=== PATIENT | male | born 1930 | race Caucasian/White ===

== ENCOUNTER 2017-10-31 10:42 | Emergency (ER) | payer MEDICARE, BC, OTHER ==
--- NOTE | 2017-10-31 10:44 | ER Document Report ---
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 They did not want to drive down for the suture removal so they came to [place] since they live nearby. It is a running stitch on the right cheek. Associated Symptoms: None Exacerbated by: Denies Relieved by: Denies - ROS ROS below otherwise negative: Yes Systems Reviewed and Negative: Yes All other systems reviewed and negative Past Medical History - General Information source: Patient - Social History Smoking Status: Unknown if Ever Smoked Frequency of alcohol use: None Drug Abuse: None Lives with: Family Family History: None - Past Medical History Cardiac Medical History: Reports: Hx Hypertension Past Surgical History: Reports: Other - derm - Immunizations Hx Diphtheria, Pertussis, Tetanus Vaccination: No Vertical Provider Document - CONSTITUTIONAL Agree With Documented VS: Yes - INFECTION CONTROL TRAVEL OUTSIDE OF THE [place] IN LAST 30 DAYS: No - NEURO Level of Consciousness: Alert - DERM Integumentary: Laceration - Right cheek Y shaped sutured area with a running stitch that I removed. The wound edges are approximated with mild swelling no infection. Discharge - Discharge Clinical Impression: Visit for suture removal Condition: Good Disposition: HOME, SELF-CARE Instructions: Suture Removal Additional Instructions: vaseline to wound See the coastal and estuary specialist as planned Referrals: ANGEL,NO [Primary Care Provider] - Follow up as needed
[2017-10-31 10:52] VITALS: BP 149/72
== END 2017-10-31 11:07 | disposition home or self-care (01) ==
LOC: ER 10:42
DX: Z48.02 Encounter for removal of sutures (principal); I10 Essential (primary) hypertension